=== PATIENT | female | born 1960 | race Caucasian/White ===

== ENCOUNTER → 2024-06-24 15:38 | Outpatient (REF) | payer OTHER, SELFPAY | LOC: HWRAD 15:38 | PROVIDERS: ATTENDING PHYSICIAN Nurse Practitioner Primary Care; FAMILY PHYSICIAN Nurse Practitioner Family | DX: M54.50 Low back pain, unspecified (principal); Z85.3 Personal history of malignant neoplasm of breast | CPT/HCPCS: 72110 ==

== ENCOUNTER → 2025-04-06 13:02 | Outpatient (REF) | payer OTHER, SELFPAY | LOC: HWRAD 13:02 | PROVIDERS: ATTENDING PHYSICIAN Nurse Practitioner Family; FAMILY PHYSICIAN Nurse Practitioner Family | DX: E03.9 Hypothyroidism, unspecified (principal) | CPT/HCPCS: 76536 ==

== ENCOUNTER 2025-05-18 06:36 | Outpatient (RCR) | payer OTHER, SELFPAY | END 2025-05-18 23:59 | disposition home or self-care (01) | LOC: RPT 06:36 | PROVIDERS: ATTENDING PHYSICIAN Nurse Practitioner Adult Health | DX: R26.2 Difficulty in walking, not elsewhere classified (principal); M62.81 Muscle weakness (generalized); Z73.6 Limitation of activities due to disability; M25.562 Pain in left knee; M25.561 Pain in right knee; M25.552 Pain in left hip; M25.551 Pain in right hip; M25.512 Pain in left shoulder; M25.511 Pain in right shoulder; R26.89 Other abnormalities of gait and mobility; G89.29 Other chronic pain; Z85.3 Personal history of malignant neoplasm of breast; Z92.3 Personal history of irradiation | CPT/HCPCS: 97110; 97162 ==

== ENCOUNTER → 2025-06-07 15:59 | Outpatient (REF) | payer OTHER, SELFPAY | LOC: RAD 15:59 | PROVIDERS: ATTENDING PHYSICIAN Nurse Practitioner Adult Health | DX: H90.5 Unspecified sensorineural hearing loss (principal); M54.2 Cervicalgia; Z85.3 Personal history of malignant neoplasm of breast; M89.8X1 Other specified disorders of bone, shoulder; R07.0 Pain in throat; R22.1 Localized swelling, mass and lump, neck | CPT/HCPCS: 70492; Q9967 ==

== ENCOUNTER → 2025-06-07 18:51 | Outpatient (REF) | payer OTHER, SELFPAY | LOC: MRI 18:51 | PROVIDERS: ATTENDING PHYSICIAN Nurse Practitioner Adult Health | DX: H91.8X3 Other specified hearing loss, bilateral (principal); H93.12 Tinnitus, left ear; Z85.3 Personal history of malignant neoplasm of breast; G43.909 Migraine, unspecified, not intractable, without status migrainosus | CPT/HCPCS: 70553; A9575 ==